=== PATIENT | male | born 2005 | race Caucasian/White ===

== ENCOUNTER → 2023-09-26 | Emergency (ER) | payer SELFPAY ==
[~2023-09-26] MED LIST: TDAP (DIPHTH,PERTUSS(ACELL),TET VAC) 0.5 ML VIAL IMVAC ONE
--- NOTE | 2023-09-26 17:29 | ER ---
Nurse's Notes [facility] Name: Garret Beltran Age: 18 yrs Sex: Male : 2005 Arrival Date: 09/26/2023 Time: 16:24 Bed IW4 Private MD: Diagnosis: Laceration without foreign body of right hand, initial encounter Presentation: 09/26 17:00 Chief complaint: Patient states: R hand laceration. Got cut with a metal tag that was nj1 on a piece of pipe that he was trying to catch. Coronavirus screen: Vaccine status: Patient reports being unvaccinated. Ebola Screen: Patient denies travel to an Ebola-affected area in the 21 days before illness onset. Initial Sepsis Screen: Does the patient meet any 2 criteria? No. Patient's initial sepsis screen is negative. Does the patient have a suspected source of infection? No. Patient's initial sepsis screen is negative. Risk Assessment: Do you want to hurt yourself or someone else? Patient reports no desire to harm self or others. Onset of symptoms was September 26, 2023. 17:00 Method Of Arrival: Ambulatory [facility] 17:00 Acuity: RANDI 4 nj1 17:00 Complicating Factors: Laceration super glued prior to arrival. [facility] Triage Assessment: 17:05 General: Appears in no apparent distress. comfortable, Behavior is calm, cooperative, nj1 appropriate for age. 17:05 Pain: Denies pain. Neuro: No deficits noted. Cardiovascular: No deficits noted. nj1 Respiratory: No deficits noted. Injury Description: Laceration sustained to Right first web space is clean, 0.5 to 2.5 cm long, not bleeding. Historical: - Allergies: 17:02 No Known Allergies; nj1 - PMHx: 17:02 seasonal allergies; nj1 - Immunization history:: Client reports having NOT received the Covid vaccine. Last tetanus immunization: 2014. - Social history:: Smoking status: Reported history of juuling and/or vaping. Vital Signs: 17:00 BP 126 / 69; Pulse 67; Resp 18; Temp 98.4(TE); Pulse Ox 100% ; Weight 77.11 kg; Height nj1 6 ft. 2 in. ; Pain 0/10; 17:00 Body Mass Index 21.83 (77.11 kg, 187.96 cm) [facility] 17:00 Pain Scale: Adult nj1 ED Course: 16:27 Patient arrived in ED. rg4 16:51 Aditya Madison PA is PHCP. cp 16:51 Aditya Chapin MD is Attending Physician. cp 17:02 Triage completed. nj1 17:04 Arm band placed on right wrist. nj1 17:28 Wound care: to laceration located on right hand was cleaned with with saline, Steri nj1 strips applied. 17:43 No provider procedures requiring assistance completed. Patient did not have IV access nj1 during this emergency room visit. Administered Medications: 17:20 Drug: Boostrix Tdap IM 0.5 ml IM once; as a single dose Route: IM; Site: right deltoid; nj1 17:41 Follow up: Response: (VIS) Vaccine information sheet provided today. Questions and/or nj1 concerns addressed. VIS edition date: Apr 19, 2021.; No adverse reaction 17:29 CANCELLED (Other Intervention Used): tetanus-diphtheria toxoidadult 0.5 ml IM once; nj1 Provide Vaccine Information Statement (VIS). Medication: 17:20 Vaccine Information Statement (VIS) provided today. Questions and/or concerns nj1 addressed. VIS edition date: April 19, 2021. Outcome: 17:28 Discharge ordered by . cp 17:43 Discharged to home ambulatory, nj1 17:43 Condition: stable 17:43 Discharge instructions given to patient, Instructed on discharge instructions, follow up and referral plans. wound care, Demonstrated understanding of instructions, follow-up care, medications, wound care, Prescriptions given X 2, 17:44 Patient left the ED. nj1 Signatures: Aditya Madison PA PA cp Garcia, Rubi rg4 Rebeka Walker, RN RN nj1 Corrections: (The following items were deleted from the chart) 17:05 17:00 Acuity: RANDI 3 nj1 nj1
--- NOTE | 2023-09-26 17:29 | EDPHYS ---
Physician Documentation [facility] Name: Garret Beltran Age: 18 yrs Sex: Male : 2005 Arrival Date: 09/26/2023 Time: 16:24 Bed IW4 Private MD: ED Physician Aditya Chapin HPI: 09/26 17:12 This 18 yrs old Male presents to ER via Ambulatory with complaints of Laceration To cp Hand. 17:12 The patient has a laceration occurred at work, and The type of wound is a puncture. cp sharp piece of metal The injury was accidental. The laceration(s) is(are) located on the dorsal side web space of right hand. Onset: The symptoms/episode began/occurred 1 hour(s) ago. Associated signs and symptoms: The patient has no apparent associated signs or symptoms. 17:12 Patient reports he cleaned laceration and placed "glue" over wound. cp Historical: - Allergies: 17:02 No Known Allergies; nj1 - PMHx: 17:02 seasonal allergies; nj1 - Immunization history:: Client reports having NOT received the Covid vaccine. Last tetanus immunization: 2014. - Social history:: Smoking status: Reported history of juuling and/or vaping. ROS: 17:15 Skin: Positive for laceration(s), of the right hand, cp 17:15 Constitutional: Negative for body aches, chills, fever, poor PO intake, cp 17:15 Respiratory: Negative for cough, shortness of breath, wheezing, 17:15 Abdomen/GI: Negative for abdominal pain, vomiting, diarrhea, constipation, 17:15 All other systems are negative, Exam: 17:20 Constitutional: The patient appears in no acute distress, alert, awake, comfortable, cp non-toxic, well developed, well nourished, 17:20 Musculoskeletal/extremity: Extremities: grossly normal except: noted in the dorsal side cp right first web space: laceration, no active bleeding, mild swelling, area palpated and no bony tenderness, no signs of tendon damage, ROM: full active range of motion, in the right hand, Perfusion: the extremity is normally perfused throughout, Sensation intact. Vital Signs: 17:00 BP 126 / 69; Pulse 67; Resp 18; Temp 98.4(TE); Pulse Ox 100% ; Weight 77.11 kg; Height nj1 6 ft. 2 in. ; Pain 0/10; 17:00 Body Mass Index 21.83 (77.11 kg, 187.96 cm) nj1 17:00 Pain Scale: Adult nj1 MDM: 17:09 Patient medically screened. cp 17:20 Differential diagnosis: superficial laceration, tendon injury, vascular injury, open cp fracture, retained foreign body. 17:28 Data reviewed: vital signs, nurses notes. cp 17:28 ED course: VSS. Patient requests tetanus vaccination and declines wound suturing and cp irrigating wound. declines any imaging. understands increased risk of infection. 09/26 17:10 Order name: Wound dressing: clean wound with saline; Complete Time: 17:30 cp Administered Medications: 17:20 Drug: Boostrix Tdap IM 0.5 ml IM once; as a single dose Route: IM; Site: right deltoid; nj 17:41 Follow up: Response: (VIS) Vaccine information sheet provided today. Questions and/or [facility] concerns addressed. VIS edition date: Apr 19, 2021.; No adverse reaction 17:29 CANCELLED (Other Intervention Used): tetanus-diphtheria toxoidadult 0.5 ml IM once; [facility] Provide Vaccine Information Statement (VIS). Disposition Summary: 09/26/23 17:28 Discharge Ordered Notes: Location: Home cp Problem: new cp Symptoms: have improved cp Condition: Stable cp Diagnosis - Laceration without foreign body of right hand, initial encounter cp Followup: cp - With: Private Physician - When: 1 - 2 days - Reason: Wound Recheck Discharge Instructions: - Discharge Summary Sheet cp - Nonsutured Laceration Care cp Forms: - Medication Reconciliation Form cp - Thank You Letter cp - Antibiotic Education cp - Prescription Opioid Use cp - Patient Portal Instructions cp - Leadership Thank You Letter cp - Work release form nj1 Prescriptions: - Cephalexin 500 mg Oral Capsule - take 1 capsule ORAL route every 8 hours for 10 days; 30 capsule; Refills: 0, cp Product Selection Permitted - Ibuprofen 800 mg Oral Tablet - take 1 tablet ORAL route every 8 hours As needed take with food; 30 tablet; cp Refills: 0, Product Selection Permitted Signatures: Aditya Madison PA PA cp Rebeka Walker RN RN nj1 Corrections: (The following items were deleted from the chart) 17:29 17:10 Tetanus-Diphtheria Toxoid IM Adult 0.5 ml IM once; Provide Vaccine Information nj1 Statement (VIS). ordered. cp
[2023-09-26 18:35] VITALS: BP 126/69; TEMP 98.4; O2SAT 100
== END ==
LOC: ER 16:24
DX: S61.411A Laceration without foreign body of right hand, initial encounter (principal)
CPT/HCPCS: 96372; 99284